=== PATIENT | male | born 1970 | race Caucasian/White ===

== ENCOUNTER 2018-12-01 03:28 | Outpatient (CLI) | payer SELFPAY | END 2018-12-01 03:29 | disposition critical access hospital (66) | LOC: EMS 03:28 | PROVIDERS: ATTEND Surgery | DX: R07.9 Chest pain, unspecified (principal) | CPT/HCPCS: A0425; A0427 ==

== ENCOUNTER 2018-12-01 03:43 | Emergency (ER) | payer SELFPAY ==
--- NOTE | 2018-12-01 03:57 | ED Physician Documentation ---
PD HPI CHEST PAIN - Stated complaint Stated Complaint: CP - History obtained from History obtained from: Patient - History of Present Illness Timing - onset: Enter time (02:00), Today Timing - onset during: Rest Timing - details: Abrupt onset Pain level now: 0 (pain was 8/10, then 5/10 after SLNTG x 2 by medics, and is 0/10 (resolved) on my HPI) Quality: Pain Location: Epigastric Radiation: Other (radiates from epigastrium to midline chest and across lower chest) Improved by: Nitro Worsened by: Other (no inciting nor exacerbating factors) Associated symptoms: No: Shortness of air, Diaphoresis, Nausea, Vomiting, Feeling faint / dizzy, General Weakness, Palpitations Similar symptoms before: Has not had sx before Recently seen: Not recently seen Review of Systems Constitutional: reports: Reviewed and negative Cardiac: reports: Chest pain / pressure. denies: Palpitations, Pedal edema, Calf pain Respiratory: reports: Reviewed and negative GI: reports: Reviewed and negative PD PAST MEDICAL HISTORY - Past Medical History Past Medical History: No - Past Surgical History Past Surgical History: No - Allergies Allergies/Adverse Reactions: Allergies Allergy/AdvReac Type Severity Reaction Status Date / Time Penicillins Allergy Unknown Verified 12/01/18 03:49 - Living Situation Living Arrangement: reports: At home PD ED PE NORMAL - Vitals Vital signs reviewed: Yes - General General: Alert and oriented X 3, No acute distress, Well developed/nourished - HEENT HEENT: Moist mucous membranes - Neck Neck: No JVD - Cardiac Cardiac: RRR, No murmur, No gallop, No rub - Respiratory Respiratory: No respiratory distress, Clear bilaterally - Abdomen Abdomen: Soft, Non tender, Non distended - Derm Derm: Normal color, Warm and dry - Extremities Extremities: No edema Results - Vitals Vitals: Vital Signs - 24 hr 12/01/18 12/01/18 03:49 04:49 Temperature 36.5 C Heart Rate 75 66 Respiratory 16 16 Rate Blood Pressure 130/98 H 110/79 O2 Saturation 98 99 Oxygen O2 Source Room air - EKG (time done) No standard instances Rate: Rate (enter#) (68) Rhythm: NSR [place]: Normal Intervals: Normal NE QRS: Normal Ischemia: Normal ST segments - Labs Labs: Laboratory Tests 12/01/18 12/01/1819 04:05 04:05 04:05 WBC 6.6 RBC 4.36 L Hgb 13.7 L Hct 42.5 MCV 97.5 H MCH 31.4 H MCHC 32.2 RDW 15.5 H Plt Count 162 MPV 10.3 Neut # (Auto) 2.4 Lymph # (Auto) 2.9 [place] # (Auto) 0.7 Eos # (Auto) 0.5 Baso # (Auto) 0.1 Absolute Nucleated RBC 0.00 Nucleated RBC % 0.0 Sodium 139 Potassium 3.8 Chloride 104 Carbon Dioxide 25 Anion Gap 10.0 BUN 12 Creatinine 0.8 Estimated GFR (MDRD) 102 Glucose 116 H Calcium 9.4 Total Bilirubin 0.6 AST 29 ALT 23 Alkaline Phosphatase 43 Troponin I < 0.04 Total Protein 6.5 L Albumin 4.0 Globulin 2.5 Albumin/Globulin Ratio 1.6 Lipase 47 - Rads (name of study) chest xray Radiology: Prelim report reviewed, See rad report PD MEDICAL DECISION MAKING - ED course Complexity details: reviewed results, re-evaluated patient, considered differential, d/w patient ED course: Remained asymptomatic during ED stay Departure - Departure Disposition: 01 Home, Self Care Clinical Impression: Chest pain Condition: Good Health Concerns: chest pain Plan of Treatment: follow up with primary care provider, return if symptoms worsen Care Goals: prevention of symptoms recurrence Assessment: see diagnosis Instructions: ED Chest Pain Atypical Unkn Cause Follow-Up: Ross Snow MD [Primary Care Provider] - (Call today to arrange for next available appointment; further testing might be necessary even if you do not have recurrence of your symptoms) Discharge Date/Time: 12/01/18 04:55
[2018-12-01 04:11] LABS: BASOPHILS # (AUTO) 0.1 10^3/uL (0.0-0.1); BASOPHILS % (AUTO) 0.8 %; EOSINOPHILS # (AUTO) 0.5 10^3/uL (0.0-0.7); EOSINOPHILS % (AUTO) 7.5 %; HGB - HEMOGLOBIN 13.7 g/dL (14.0-18.0); LYMPHOCYTES # (AUTO) 2.9 10^3/uL (1.5-3.5); LYMPHOCYTES % (AUTO) 44.4 %; MEAN CORPUSCULAR HEMOGLOBIN 31.4 pg (27.0-31.0); MEAN CORPUSCULAR HGB CONC 32.2 g/dL (32.0-36.0); MEAN CORPUSCULAR VOLUME 97.5 fL (80.0-94.0); MEAN PLATELET VOLUME 10.3 fL (7.4-11.4); MONOCYTES # (AUTO) 0.7 10^3/uL (0.0-1.0); MONOCYTES % (AUTO) 10.4 %; NEUTROPHILS # (AUTO) 2.4 10^3/uL (1.5-6.6); NEUTROPHILS % (AUTO) 36.6 %; PLT - PLATELET COUNT 162 10^3/uL (130-450); RED BLOOD COUNT 4.36 10^6/uL (4.70-6.10); RED CELL DISTRIBUTION WIDTH 15.5 % (12.0-15.0); WHITE BLOOD COUNT 6.6 x10^3/uL (4.8-10.8)
[2018-12-01 04:23] LABS: ALBUMIN/GLOBULIN RATIO 1.6 (1.0-2.2); BILIRUBIN,TOTAL 0.6 mg/dL (0.2-1.0); CALCIUM 9.4 mg/dL (8.5-10.3); CREATININE 0.8 mg/dL (0.6-1.2); TOTAL PROTEIN 6.5 g/dL (6.7-8.2)
--- NOTE | 2018-12-01 04:38 | XRAY Report ---
Reason: chest pain Procedure Date: 12/01/2018 Accession Number: [id number] / [id number] Procedure: XR - Chest 2 View X-Ray CPT Code: 37503 FULL RESULT: EXAM: CHEST RADIOGRAPHY EXAM DATE: 12/01/2018 04:15 AM. CLINICAL HISTORY: Chest pain. COMPARISON: CXR 12/12/2005 1:54 PM. TECHNIQUE: 2 views. FINDINGS: Lungs/Pleura: No focal opacities evident. No pleural effusion. No pneumothorax. Normal volumes. Mediastinum: Heart and mediastinal contours are unremarkable. Other: None. IMPRESSION: Normal 2-view chest radiography. RADIA
[2018-12-01 04:49] VITALS: BP 110/79
== END 2018-12-01 04:55 | disposition home or self-care (01) ==
LOC: EDUNIT# → ED 03:43
DX: R07.9 Chest pain, unspecified (principal); R10.13 Epigastric pain
CPT/HCPCS: 36415; 71046; 80053; 83690; 84484; 85025; 93005; 99283; 99284

== ENCOUNTER 2020-03-26 15:44 | Outpatient (CLI) | payer MEDICAID | END 2020-03-26 15:45 | disposition critical access hospital (66) | LOC: EMS 15:44 | PROVIDERS: ATTEND Surgery | DX: R07.9 Chest pain, unspecified (principal); R10.13 Epigastric pain | CPT/HCPCS: A0425; A0429 ==

== ENCOUNTER 2020-03-26 16:08 | Emergency (ER) | payer MEDICAID ==
--- NOTE | 2020-03-26 16:18 | ED Physician Documentation ---
PD HPI CHEST PAIN - Stated complaint Stated Complaint: EPIGASTRIC DISCOMFORT - History obtained from History obtained from: Patient, EMS - Additional information Additional information: 49-year-old gentleman, generally healthy but does smoke and drinks alcohol. He developed sudden onset stabbing left lower chest pain that is nonradiating about an hour ago. Not associated with cough or shortness of breath. It is worse if he takes a deep breath. No recent travel. No pedal edema or calf pain. No history of heart or lung problems. Brought in by ambulance, prehospital EKG looks normal. Declined/refused other interventions in route including aspirin, nitroglycerin. Review of Systems Ten Systems: 10 systems reviewed and negative Constitutional: reports: Reviewed and negative Cardiac: reports: Chest pain / pressure. denies: Palpitations, Pedal edema, Calf pain Respiratory: denies: Dyspnea, Cough, Hemoptysis, Wheezing PD PAST MEDICAL HISTORY - Past Medical History GI: Hiatal hernia - Past Surgical History Past Surgical History: No - Present Medications Home Medications: Ambulatory Orders Medication Instructions Recorded Confirmed Omeprazole 20 mg PO DAILY #30 capsule. 03/26/20 - Allergies Allergies/Adverse Reactions: Allergies Allergy/AdvReac Type Severity Reaction Status Date / Time Penicillins Allergy Unknown Verified 03/26/20 16:19 - Social History Does the pt smoke?: Yes Smoking Status: Current every day smoker Does the pt drink ETOH?: Yes Does the pt have substance abuse?: No - Family History Family history: reports: CAD (younger brother) PD ED PE NORMAL - Vitals Vital signs reviewed: Yes - General General: Alert and oriented X 3, Other ([place] with deep breathing bout, otherwise comfortable) - HEENT HEENT: PERRL, EOMI - Neck Neck: Supple, no meningeal sign, No bony TTP - Cardiac Cardiac: RRR, No murmur - Respiratory Respiratory: No respiratory distress, Clear bilaterally - Abdomen Abdomen: Soft, Non tender - Back Back: No CVA TTP, No spinal TTP - Extremities Extremities: No edema, No calf tenderness / cord - Neuro Neuro: Alert and oriented X 3, Normal speech Results - Vitals Vitals: Vital Signs - 24 hr 03/26/20 03/26/20 03/26/20 16:10 17:09 17:22 Temperature 36.9 C Heart Rate 74 61 Respiratory 18 16 Rate Blood Pressure 156/111 H 145/109 H 141/98 H O2 Saturation 98 100 03/26/20 17:59 Temperature 36.7 C Heart Rate 70 Respiratory 20 Rate Blood Pressure 144/98 H O2 Saturation 99 Oxygen O2 Source Room air - Labs Labs: Laboratory Tests 03/26/20 03/26/20 03/26/20 17:00 17:00 17:00 WBC 5.3 RBC 4.47 L Hgb 14.6 Hct 42.9 MCV 96.0 H MCH 32.7 H MCHC 34.0 RDW 15.5 H Plt Count 141 MPV 10.3 Neut # (Auto) 2.5 Lymph # (Auto) 1.9 [place] # (Auto) 0.6 Eos # (Auto) 0.3 Baso # (Auto) 0.0 Absolute Nucleated RBC 0.00 Nucleated RBC % 0.0 D-Dimer < 200.0 L Sodium 138 Potassium 4.1 Chloride 104 Carbon Dioxide 25 Anion Gap 9.0 BUN 7 Creatinine 0.6 Estimated GFR (MDRD) 142 Glucose 102 H Calcium 9.6 Total Bilirubin 0.6 AST 91 H ALT 49 Alkaline Phosphatase 48 Troponin I High Sens Total Protein 7.1 Albumin 4.3 Globulin 2.8 Albumin/Globulin Ratio 1.5 Lipase 81 H 03/26/20 17:00 WBC RBC Hgb Hct MCV MCH MCHC RDW Plt Count MPV Neut # (Auto) Lymph # (Auto) [place] # (Auto) Eos # (Auto) Baso # (Auto) Absolute Nucleated RBC Nucleated RBC % D-Dimer Sodium Potassium Chloride Carbon Dioxide Anion Gap BUN Creatinine Estimated GFR (MDRD) Glucose Calcium Total Bilirubin AST ALT Alkaline Phosphatase Troponin I High Sens 2.6 Total Protein Albumin Globulin Albumin/Globulin Ratio Lipase PD MEDICAL DECISION MAKING - ED course ED course: Heart score is 2 (smoking, fhx), pleuritic nature was concerning for PE but D- dimer negative. Departure - Departure Disposition: 01 Home, Self Care Clinical Impression: Chest pain Qualifiers: Chest pain type: unspecified Qualified Code(s): R07.9 - Chest pain, unspecified Condition: Good Record reviewed to determine appropriate education?: Yes Instructions: ED Chest Pain NonCardiac Prescriptions: Omeprazole 20 mg PO DAILY #30 capsule. Comments: Call your doctor to arrange a follow-up appointment, make the next available appointment. In the interim, return anytime if worse or if new symptoms develop.
--- NOTE | 2020-03-26 16:46 | XRAY Report ---
PROCEDURE: Chest 2 View X-Ray INDICATIONS: chest pain TECHNIQUE: 2 view(s) of the chest. COMPARISON: None. FINDINGS: Surgical changes and devices: None. Lungs and pleura: No pleural effusions or pneumothorax. Lungs are clear. Mediastinum: Mediastinal contours are normal. Heart size is normal. Bones and chest wall: No suspicious bony abnormalities. Soft tissues appear unremarkable. IMPRESSION: No acute cardia pulmonary pathology. Reviewed by: Damián Franklin MD on 03/26/2020 4:45 PM PDT Approved by: Damián Franklin MD on 03/26/2020 4:45 PM PDT Station ID: [id number]
[2020-03-26 17:12] LABS: BASOPHILS % (AUTO) 0.8 %; EOSINOPHILS # (AUTO) 0.3 10^3/uL (0.0-0.7); HGB - HEMOGLOBIN 14.6 g/dL (14.0-18.0); LYMPHOCYTES # (AUTO) 1.9 10^3/uL (1.5-3.5); LYMPHOCYTES % (AUTO) 35.3 %; MEAN CORPUSCULAR HEMOGLOBIN 32.7 pg (27.0-31.0); MEAN PLATELET VOLUME 10.3 fL (7.4-11.4); MONOCYTES # (AUTO) 0.6 10^3/uL (0.0-1.0); MONOCYTES % (AUTO) 10.4 %; NEUTROPHILS # (AUTO) 2.5 10^3/uL (1.5-6.6); NEUTROPHILS % (AUTO) 47.1 %; PLT - PLATELET COUNT 141 10^3/uL (130-450); RED BLOOD COUNT 4.47 10^6/uL (4.70-6.10); RED CELL DISTRIBUTION WIDTH 15.5 % (12.0-15.0); WHITE BLOOD COUNT 5.3 x10^3/uL (4.8-10.8)
[2020-03-26 17:24] LABS: ALBUMIN 4.3 g/dL (3.2-5.5); ALBUMIN/GLOBULIN RATIO 1.5 (1.0-2.2); BILIRUBIN,TOTAL 0.6 mg/dL (0.2-1.0); CALCIUM 9.6 mg/dL (8.5-10.3); CREATININE 0.6 mg/dL (0.6-1.2); TOTAL PROTEIN 7.1 g/dL (6.7-8.2)
[2020-03-26] MEDS ORDERED: LIDOCAINE VISCOUS 2% 15 ML UDC MM STA (17:35)
[2020-03-26] MEDS ORDERED: MAG HYDROX/AL HYDROX/SIMETH 30 ML UDC PO STA (17:35)
[2020-03-26 17:59] VITALS: BP 144/98
== END 2020-03-26 18:57 | disposition home or self-care (01) ==
LOC: EDUNIT# → ED 16:08
DX: R07.9 Chest pain, unspecified (principal); F17.200 Nicotine dependence, unspecified, uncomplicated
CPT/HCPCS: 36415; 71046; 80053; 83690; 84484; 85025; 85379; 93005; 99284; A9270

== ENCOUNTER 2021-02-20 07:36 | Outpatient (CLI) | payer MEDICAID | END 2021-02-20 07:37 | disposition critical access hospital (66) | LOC: EMS 07:36 | DX: N50.82 Scrotal pain (principal); R10.9 Unspecified abdominal pain; R11.0 Nausea | CPT/HCPCS: A0425; A0427; A0999 ==

== ENCOUNTER 2021-02-20 07:53 | Emergency (ER) | payer MEDICAID ==
[2021-02-20] MEDS ORDERED: KETOROLAC 30 MG/ML VIAL IVP STA (07:56)
[2021-02-20 08:14] LABS: BASOPHILS % (AUTO) 0.6 %; EOSINOPHILS # (AUTO) 0.3 10^3/uL (0.0-0.7); EOSINOPHILS % (AUTO) 4.2 %; HCT - HEMATOCRIT 38.2 % (42.0-52.0); HGB - HEMOGLOBIN 13.3 g/dL (14.0-18.0); LYMPHOCYTES # (AUTO) 1.9 10^3/uL (1.5-3.5); LYMPHOCYTES % (AUTO) 29.9 %; MEAN CORPUSCULAR HEMOGLOBIN 32.8 pg (27.0-31.0); MEAN CORPUSCULAR HGB CONC 34.8 g/dL (32.0-36.0); MEAN CORPUSCULAR VOLUME 94.1 fL (80.0-94.0); MEAN PLATELET VOLUME 10.7 fL (7.4-11.4); MONOCYTES # (AUTO) 0.6 10^3/uL (0.0-1.0); MONOCYTES % (AUTO) 9.9 %; NEUTROPHILS # (AUTO) 3.5 10^3/uL (1.5-6.6); NEUTROPHILS % (AUTO) 55.2 %; PLT - PLATELET COUNT 146 10^3/uL (130-450); RED BLOOD COUNT 4.06 10^6/uL (4.70-6.10); RED CELL DISTRIBUTION WIDTH 15.2 % (12.0-15.0); WHITE BLOOD COUNT 6.3 x10^3/uL (4.8-10.8)
[2021-02-20] MEDS ORDERED: SODIUM CHLORIDE 0.9% 1,000 ML IV STA (08:20)
[2021-02-20 08:26] LABS: ALBUMIN 3.9 g/dL (3.2-5.5); ALBUMIN/GLOBULIN RATIO 1.3 (1.0-2.2); BILIRUBIN,TOTAL 0.8 mg/dL (0.2-1.0); CALCIUM 9.5 mg/dL (8.5-10.3); CREATININE 0.8 mg/dL (0.6-1.2); POTASSIUM 3.9 mmol/L (3.5-5.0); TOTAL PROTEIN 6.8 g/dL (6.7-8.2)
--- NOTE | 2021-02-20 08:36 | CT Report ---
PROCEDURE: Abdomen/Pelvis WO INDICATIONS: right flank pain TECHNIQUE: Noncontrast 5 mm thick sections acquired from the diaphragms to the symphysis. 5 mm coronal and sagi ttal reformats were then performed. For radiation dose reduction, the following was used: automated exposure control, adjustment of mA and/or kV according to patient size. COMPARISON: None. FINDINGS: ABDOMEN: Lung bases: Normal Heart:Normal. Liver: Normal. Gallbladder: Normal. Bile ducts: Normal. Pancreas: Normal. Spleen: Normal. Adrenals: Normal. Kidneys and ureters: 2 mm mildly obstructive distal right ureteral calculus. No left-sided urolithias is. There is mild right hydroureteronephrosis. Minimal right perinephric stranding. Stomach and duodenum: Normal. Bowel: The appendix appears normal (image 101/3) No evidence of bowel obstruction. There is long segm ent mild mural thickening involving the colon including the right, transverse, and descending colon h owever limited evaluation given decompressed status. Other: No free fluid or air. Abdominal nodes: Normal. Aorta: Normal in sizel. IVC: Normal. Ventral wall: Normal. PELVIS: Bladder: Normal. Pelvic nodes: Normal. Inguinal regions: No hernia. Bones: No vertebral body compression fracture. No suspicious bone lesion. Diffuse spondylosis and fac et arthropathy IMPRESSION: Mildly obstructive 2 mm mid right ureteral calculus. No left-sided urolithiasis identified. Normal appendix Mild diffuse colonic mural thickening suggestive of low-grade pancolitis of infectious or inflammator y etiology. Please correlate clinically and with laboratory data. Technically this finding age-indete rminate and could be chronic. Reviewed by: Ron Mcmanus MD on 02/20/2021 8:35 AM PDT Approved by: Ron Mcmanus MD on 02/20/2021 8:35 AM PDT Station ID: [id number]
--- NOTE | 2021-02-20 08:44 | ED Physician Documentation ---
PD HPI ABD PAIN - Stated complaint Stated Complaint: AB PX - Chief complaint Chief Complaint: Abd Pain - History obtained from History obtained from: Patient - History of Present Illness Timing - onset: Enter time (0500), Today Timing - duration: Hours Timing - details: Abrupt onset, Still present Quality: Sharp, Pain Location: RUQ Radiation: Right flank Improved by: Other (nothing) Worsened by: Other (nothing) Associated symptoms: Nausea. No: Vomiting Similar symptoms before: Diagnosis (kidney stone) Recently seen: Other (had immunization last wk) - Additional information Additional information: 50-year-old male with a prior history of kidney stones has developed acute right-sided abdominal pain at 5 AM without modifying factors. He states the pain radiated from his right flank down into his scrotum currently his pain is mostly in the lower pelvis area. He has had some nausea. He does indicate that he is otherwise had some issue with some intermittent diarrhea for the past 6 months. He denies any blood in it or any significant abdominal pain associated with this. Review of Systems Constitutional: denies: Fever Eyes: denies: Decreased vision Ears: denies: Loss of hearing, Ear pain Nose: denies: Congestion Throat: denies: Sore throat Cardiac: denies: Chest pain / pressure, Palpitations Respiratory: denies: Dyspnea, Cough GI: reports: Abdominal Pain, Nausea. denies: Constipation, Diarrhea : denies: Dysuria, Frequency Skin: denies: Rash, Lesions Musculoskeletal: reports: Back pain. denies: Neck pain, Extremity pain PD PAST MEDICAL HISTORY - Past Medical History GI: Hiatal hernia - Past Surgical History Past Surgical History: No - Present Medications Home Medications: Ambulatory Orders Medication Instructions Recorded Confirmed Omeprazole 20 mg PO DAILY #30 capsule. 03/26/20 HYDROcod/ACETAM 5/325 [[place] 5/325] 1 - 2 tablet PO Q6H PRN #14 tablet 02/20/21 - Allergies Allergies/Adverse Reactions: Allergies Allergy/AdvReac Type Severity Reaction Status Date / Time Penicillins Allergy Unknown Verified 02/20/21 08:00 - Social History Does the pt smoke?: Yes Smoking Status: Current every day smoker Does the pt drink ETOH?: Yes Does the pt have substance abuse?: No - Immunizations Immunizations are current?: No PD ED PE NORMAL - Vitals Vital signs reviewed: Yes (hypertensive mild ) - General General: Alert and oriented X 3, Well developed/nourished, Other (uncomfortable masked male. ) - HEENT HEENT: Atraumatic, PERRL, EOMI - Cardiac Cardiac: RRR, No murmur - Respiratory Respiratory: No respiratory distress, Clear bilaterally - Abdomen Abdomen: Normal bowel sounds, Soft, Non tender, Non distended, No organomegaly - Back Back: No CVA TTP, No spinal TTP - Derm Derm: Normal color, Warm and dry, No rash - Extremities Extremities: No deformity, No edema - Neuro Neuro: Alert and oriented X 3, enamel pulverizer 2-12 intact, No motor deficit, No sensory deficit, Normal speech Eye Opening: Spontaneous Motor: Obeys Commands Verbal: Oriented GCS Score: 15 - Psych Psych: Normal mood, Normal affect Results - Vitals Vitals: Vital Signs - 24 hr 02/20/21 02/20/21 02/20/21 07:58 09:17 11:00 Temperature 36.3 C L 36.9 C Heart Rate 55 L 56 L 59 L Respiratory 16 16 Rate Blood Pressure 123/83 H 121/85 H O2 Saturation 99 99 97 Oxygen O2 Source Room air - Labs Labs: Laboratory Tests 02/20/21 02/20/21 02/20/21 08:08 08:08 10:30 WBC 6.3 RBC 4.06 L Hgb 13.3 L Hct 38.2 L MCV 94.1 H MCH 32.8 H MCHC 34.8 RDW 15.2 H Plt Count 146 MPV 10.7 Neut # (Auto) 3.5 Lymph # (Auto) 1.9 [place] # (Auto) 0.6 Eos # (Auto) 0.3 Baso # (Auto) 0.0 Absolute Nucleated RBC 0.00 Nucleated RBC % 0.0 Sodium 141 Potassium 3.9 Chloride 103 Carbon Dioxide 23 Anion Gap 15.0 H BUN 13 Creatinine 0.8 Estimated GFR (MDRD) 102 Glucose 136 H Calcium 9.5 Total Bilirubin 0.8 AST 55 H ALT 29 Alkaline Phosphatase 36 L Total Protein 6.8 Albumin 3.9 Globulin 2.9 Albumin/Globulin Ratio 1.3 Lipase 34 Urine Color YELLOW Urine Clarity CLEAR Urine pH 6.5 Ur Specific [place] 1.020 Urine Protein NEGATIVE Urine Glucose (UA) NEGATIVE Urine Ketones NEGATIVE Urine Occult Blood LARGE H Urine Nitrite NEGATIVE Urine Bilirubin NEGATIVE Urine Urobilinogen 0.2 (NORMAL) Ur Leukocyte Esterase NEGATIVE Urine RBC TNTC H Urine WBC 0-3 Ur Squamous Epith Cells FEW Squamous Urine Crystals 0-2 Calcium Oxalate Urine Bacteria Rare Urine Mucus Few Strands Ur Microscopic Review INDICATED Urine Culture Comments NOT INDICATED - Rads (name of study) CT ab pel Radiology: Prelim report reviewed (Impression: Mildly obstructive 2 mm right ureteral calculus. No left-sided ureteral lithiasis identified. Normal appendix. Mild diffuse colonic mural thickening suggestive of low-grade pancolitis of infectious or inflammatory etiology. Please correlate clinically and with laboratory data. ), Final report received ( Technically this finding age-indeterminate and could be chronic), EMP read indepedently, See rad report Procedures - Bedside sono Bedside sono by EMP: With use of bedside ultrasound the right kidney is imaged it is sonographically nontender there is evidence of mild hydronephrosis. PD MEDICAL DECISION MAKING - ED course Complexity details: reviewed old records, reviewed results, re-evaluated pat ient, considered differential, d/w patient ED course: 50-year-old male with a prior history of kidney stone has presented with symptoms consistent with a kidney stone again today. He has symptoms on the right side he has hydronephrosis with bedside ultrasound and CT scan of the abdomen pelvis reveals a 2 mm stone in the distal ureter with mild obstruction. The patient is administered Toradol 30 mg intravenously and a liter of saline with marked improvement in his symptoms. Departure - Departure Disposition: 01 Home, Self Care Clinical Impression: Ureterolithiasis Condition: Stable Instructions: ED Stone Renal W Colic Follow-Up: Your, doctor [Other] Prescriptions: HYDROcod/ACETAM 5/325 [[place] 5/325] 1 - 2 tablet PO Q6H PRN #14 tablet PRN Reason: Pain Discharge Date/Time: 02/20/21 11:25
[2021-02-20 10:41] LABS: BILIRUBIN,URINE NEGATIVE (NEGATIVE); GLUCOSE, URINE (UA) NEGATIVE (NEGATIVE); KETONES,URINE (UA) NEGATIVE (NEGATIVE); LEUKOCYTE ESTERASE, URINE NEGATIVE (NEGATIVE); NITRITE,URINE NEGATIVE (NEGATIVE); OCCULT BLOOD,URINE LARGE (NEGATIVE); PH,URINE 6.5 PH (5.0-7.5); PROTEIN,URINE NEGATIVE (NEGATIVE); UROBILINOGEN,URINE 0.2 (NORMAL) E.U./dL (NORMAL)
[2021-02-20 10:53] LABS: CLARITY,URINE CLEAR (CLEAR)
[2021-02-20 10:54] LABS: BACTERIA,URINE Rare /HPF (None Seen); MUCUS,URINE Few Strands; RBC,URINE TNTC /HPF (0-5); SQUAMOUS EPITHELIAL CELL,UR FEW Squamous (<= Few); WBC,URINE 0-3 /HPF (0-3)
[2021-02-20 10:55] LABS: CRYSTALS,URINE 0-2 Calcium Oxalate /LPF
[2021-02-20 11:15] VITALS: BP 121/85
== END 2021-02-20 11:25 | disposition home or self-care (01) ==
LOC: EDUNIT# → ED 07:53
DX: N13.2 Hydronephrosis with renal and ureteral calculous obstruction (principal); F17.200 Nicotine dependence, unspecified, uncomplicated
CPT/HCPCS: 36415; 80053; 81001; 81003; 83690; 85025; 87086; 96361; 96374; 99284

== ENCOUNTER 2022-06-16 07:58 | Emergency (ER) | payer MEDICAID ==
--- NOTE | 2022-06-16 09:02 | XRAY Report ---
PROCEDURE: Ribs w/PA Chest LT INDICATIONS: pain, shortness of air TECHNIQUE: 2 views of the left ribs were acquired, along with a single view chest. COMPARISON: 03/26/2020 FINDINGS: Surgical changes and devices: None. Bones and chest wall: No fractures or dislocations. No suspicious bony lesions. Overlying soft tis sues appear unremarkable. Lungs and pleura: No pleural effusions or pneumothorax. Lungs appear clear. Mediastinum: Mediastinal contours appear normal. Heart size is normal. IMPRESSION: No acute process. No acute fracture. No osseous lesion. If symptoms and/or clinical suspicion for pat hology continue, further assessment with repeat plain films, or advanced imaging (e.g., CT, MRI, or b one scan) is recommended for further assessment. Reviewed by: Jessica Valencia MD on 06/16/2022 9:01 AM PST Approved by: Jessica Valencia MD on 06/16/2022 9:01 AM PST Station ID: [id number]
[2022-06-16 12:05] VITALS: BP 136/85
[2022-06-16] MEDS ORDERED: oxyCODONE 5 MG TABLET PO STA (12:16)
[2022-06-16] MEDS ORDERED: LIDOCAINE PATCH 5% TOP STA (12:16)
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
== END 2022-06-16 12:26 | disposition home or self-care (01) ==
LOC: ED 07:58
DX: R07.89 Other chest pain (principal); F17.200 Nicotine dependence, unspecified, uncomplicated
CPT/HCPCS: 71101; 99283; 99284; A9270

== ENCOUNTER 2023-10-25 11:27 | Emergency (ER) | payer SELFPAY ==
[2023-10-25 12:20] VITALS: O2SAT 98
--- NOTE | 2023-10-25 12:28 | ED Physician Documentation ---
PD HPI HEAD INJURY - Stated complaint Stated Complaint: HEAD INJURY - Chief complaint Chief Complaint: Trauma Hd/Nk - Additional information Additional information: 53-year-old male presents emergency department for concerns of head injury after experiencing a ground-level fall on Tuesday. Patient says that he tripped and fell over a box on the ground he fell hitting his head on the wall and said that there was a significant dent in the drywall after falling. Since then he said that he has been feeling increasingly more weak, nauseous, woozy off or head pain or neck pain. He denies any neurological deficits no loss of consciousness denies any use of blood thinners. PD PAST MEDICAL HISTORY - Past Medical History Past Medical History: Yes Cardiovascular: Hypertension Respiratory: None Neuro: None Endocrine/Autoimmune: None GI: Hiatal hernia - Past Surgical History Past Surgical History: No - Present Medications Home Medications: Ambulatory Orders Medication Instructions Recorded Confirmed Acetaminophen [Tylenol] 650 mg PO Q6H PRN 10/21/22 10/21/22 Butalb/Acetam/Caff 50/325/40 1 each PO Q6H PRN #5 tablet 10/21/22 [Fioricet] Cetirizine [ZyrTEC] 10 mg PO DAILY 10/21/22 10/21/22 HYDROcod/ACETAM 5/325 [[place] 5/325] 1 ea PO Q6H PRN #10 tablet 10/21/22 Naproxen Sodium [Aleve] 220 mg PO DAILY PRN 10/21/22 10/21/22 Ondansetron Odt [Zofran] 4 mg TL Q6H PRN #10 tablet 10/21/22 dexAMETHasone [Decadron] 4 mg PO DAILY #5 tablet 10/21/22 - Allergies Allergies/Adverse Reactions: Allergies Allergy/AdvReac Type Severity Reaction Status Date / Time Penicillins Allergy Unknown Verified 10/25/23 12:18 pseudoephedrine AdvReac Unknown Verified 10/25/23 12:18 - Social History Does the pt smoke?: Yes Smoking Status: Current every day smoker Does the pt drink ETOH?: Yes Does the pt have substance abuse?: No - Immunizations Immunizations are current?: No PD ED PE NORMAL - Vitals Vital signs reviewed: Yes - General General: Alert and oriented X 3, No acute distress, Well developed/nourished - HEENT HEENT: PERRL, Moist mucous membranes - Neck Neck: No JVD. 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, No motor deficit, No sensory deficit, Normal speech Eye Opening: Spontaneous Motor: Obeys Commands Verbal: Oriented GCS Score: 15 - Psych Psych: Normal mood Results - Vitals Vitals: Vital Signs - 24 hr 10/25/23 10/25/23 12:11 16:56 Temperature 36.4 C L 36.2 C L Heart Rate 87 86 Respiratory 15 16 Rate Blood Pressure 117/85 H 145/85 H O2 Saturation 98 98 Oxygen O2 Source Room air - Labs Labs: Laboratory Tests 10/25/23 10/25/23 15:11 15:11 WBC 5.7 RBC 4.43 L Hgb 14.0 Hct 42.7 MCV 96.4 H MCH 31.6 H MCHC 32.8 RDW 16.7 H Plt Count 151 MPV 10.0 Neut # (Auto) 3.6 Lymph # (Auto) 1.5 [place] # (Auto) 0.4 Eos # (Auto) 0.1 Baso # (Auto) 0.0 Absolute Nucleated RBC 0.00 Nucleated RBC % 0.0 Sodium 138 Potassium 4.2 Chloride 103 Carbon Dioxide 27 Anion Gap 8.0 BUN 12 Creatinine 0.6 Estimated GFR (MDRD) 140 Glucose 115 H Calcium 9.9 Magnesium 1.6 L Total Bilirubin 0.4 AST 26 ALT 14 Alkaline Phosphatase 42 Total Protein 7.3 Albumin 4.5 Globulin 2.8 Albumin/Globulin Ratio 1.6 Lipase 18 - Rads (name of study) Ribs x-ray Relevant Findings:: Final report received, EMP independent interpretation of test, Other (No acute rib fractures or other osseous abnormalities) Head CT without Relevant Findings:: Final report received, EMP independent interpretation of test, Other (No acute intracranial abnormalities or findings no cranial fractures) Cervical spine without Relevant Findings:: Final report received, EMP independent interpretation of test, Other (Mildly displaced fracture at the anterior lateral aspect of the right C2 vertebral body fracture line extends through the right gates transversarium) Angio neck CT with Relevant Findings:: Final report received, EMP independent interpretation of test, Other (Tiny linear filling defect involving the right vertebral artery adjacent to the right C2 fracture possible small focal dissection) PD Medical Decision Making - ED course ED course: 53-year-old male presents emergency department with head injury that occurred on Tuesday, October 20. Patient reports overall he has been feeling worse instead of better. Differentials include but not limited to intracranial hemorrhage, C-spine fracture, dissection. Rib x-ray was complete for possible rib fracture of the left chest which was found to be unremarkable. Head CT without was complete and did not reveal any intracranial hemorrhages or abnormalities. Cervical neck CT without con was also complete for further evaluation unfortunately there was found to be a minimally displaced C2 fracture of the right vertebral body. Fracture lines do extend through the right gates transversarium. From there we went ahead and added on a CT neck angio which did reveal a tiny linear filling defect involving the right vertebral artery adjacent to the right C2 fracture. This is most likely due to a small focal dissection. Labs were complete no leukocytosis and no anemia no other electrolyte abnormalities or findings. We reach out to [facility] who connected me with Dr. layton ER emergency physician who was kind enough to accept patient ER to ER. Patient will be flown to [facility] emergency department for further evaluation of his C2 fracture with possible dissection. Patient remains completely neurologically intact he is reminded multiple times to sit down at rest. C-collar has been on patient's entire ER visit. Patient does report that he feels like he is going into nicotine withdrawal so nicotine patch is ordered. Patient is agreeable to be transferred to [facility] via airlift. Departure - Departure Disposition: 02 Transfer Acute Care Hosp Clinical Impression: Vertebral artery dissection, Ground-level fall C2 cervical fracture Qualifiers: Encounter type: initial encounter Fracture type: closed Fracture morphology: unspecified fracture morphology Fracture alignment: displaced Qualified Code(s): S12.100A - Unspecified displaced fracture of second cervical vertebra, initial encounter for closed fracture Forms: PCP List
[2023-10-25] MEDS: IBUPROFEN 600 MG TABLET PO STA (12:41)
[2023-10-25] MEDS: ACETAMINOPHEN 325 MG TABLET PO STA (12:41)
[2023-10-25] MEDS: ONDANSETRON ODT 4 MG TABLET TL STA (12:41)
--- NOTE | 2023-10-25 14:26 | CT Report ---
PROCEDURE: Head WO INDICATIONS: fall, hit head on wall TECHNIQUE: Noncontrast 4.5 mm thick angled axial sections acquired from the foramen magnum to the vertex. For r adiation dose reduction, the following was used: automated exposure control, adjustment of mA and/or kV according to patient size. COMPARISON: 10/21/2022. Correlation is also made with the accompanying imaging. FINDINGS: Image quality: Excellent. CSF spaces: Basal cisterns are patent. No extra-axial fluid collections. Ventricles are normal in size and shape. Brain: No midline shift. No intracranial masses or hemorrhage. Ladd-white matter interface is norm al. Skull and face: Calvarium and visualized facial bones are intact, without suspicious lesions. Sinuses: Visualized sinuses and mastoids are clear. IMPRESSION: Noncontrast head CT within normal limits, stable from prior. Reviewed by: Scott Cedeño MD on 10/25/2023 1:25 PM JAKE Approved by: Scott Cedeño MD on 10/25/2023 1:25 PM JAKE Station ID: [id number]
--- NOTE | 2023-10-25 14:32 | CT Report ---
PROCEDURE: Cervical Spine WO INDICATIONS: fall, hit head on wall TECHNIQUE: Noncontrast 3 mm thick sections acquired from the skull base to the T4 level. Sagittal and coronal r eformats were then constructed. For radiation dose reduction, the following was used: automated exp osure control, adjustment of mA and/or kV according to patient size. COMPARISON: Correlation is made with the accompanying imaging. FINDINGS: Image quality: Excellent. Bones: There is a mildly displaced fracture seen involving the anterolateral body of the C2 level on the right, which continues into the lateral elements. There is involvement of the right foramen trans versarium. The fracture lines can be seen on series 10 image 29 and on series 8 image 21 and on serie s 12 image 36. No additional fractures can be seen. Focal degenerative change can be seen involving the C1-C2 inte rface anteriorly. Mild to moderate disc space narrowing can be seen at the C6-C7 level, with associat ed endplate irregularity and mild posteriorly directed endplate osteophytes. Soft tissues: Prevertebral soft tissues are normal in thickness. No paravertebral hematomas. No ap ical pneumothoraces. IMPRESSION: There is a mildly displaced fracture seen involving the anterolateral aspect of the right C2 vertebra l body. The fracture lines extend through the right foramen transversarium. As a conservative measure, please consider a follow-up neck CT angiogram to evaluate for potential in volvement of the right vertebral artery at this site. Focal C6-C7 degenerative change is seen. Reviewed by: Scott Cedeño MD on 10/25/2023 1:30 PM JAKE Approved by: Scott Cedeño MD on 10/25/2023 1:30 PM OHPETER Station ID: [id number]
[2023-10-25] MEDS: oxyCODONE 5 MG TABLET PO STA (14:50)
[2023-10-25 15:17] LABS: BASOPHILS % (AUTO) 0.5 %; EOSINOPHILS # (AUTO) 0.1 10^3/uL (0.0-0.7); EOSINOPHILS % (AUTO) 2.5 %; HCT - HEMATOCRIT 42.7 % (42.0-52.0); LYMPHOCYTES # (AUTO) 1.5 10^3/uL (1.5-3.5); MEAN CORPUSCULAR HEMOGLOBIN 31.6 pg (27.0-31.0); MEAN CORPUSCULAR HGB CONC 32.8 g/dL (32.0-36.0); MEAN CORPUSCULAR VOLUME 96.4 fL (80.0-94.0); MONOCYTES # (AUTO) 0.4 10^3/uL (0.0-1.0); MONOCYTES % (AUTO) 7.4 %; NEUTROPHILS # (AUTO) 3.6 10^3/uL (1.5-6.6); NEUTROPHILS % (AUTO) 63.4 %; PLT - PLATELET COUNT 151 10^3/uL (130-450); RED BLOOD COUNT 4.43 10^6/uL (4.70-6.10); RED CELL DISTRIBUTION WIDTH 16.7 % (12.0-15.0); WHITE BLOOD COUNT 5.7 x10^3/uL (4.8-10.8)
[2023-10-25 15:31] LABS: ALBUMIN 4.5 g/dL (3.2-5.5); ALBUMIN/GLOBULIN RATIO 1.6 (1.0-2.2); BILIRUBIN,TOTAL 0.4 mg/dL (0.2-1.0); CALCIUM 9.9 mg/dL (8.5-10.3); CREATININE 0.6 mg/dL (0.6-1.3); MAGNESIUM 1.6 mg/dL (1.7-2.3); POTASSIUM 4.2 mmol/L (3.5-4.5); TOTAL PROTEIN 7.3 g/dL (6.4-8.9)
[2023-10-25] MEDS ORDERED: iohexoL-300 100 ML VIAL ONE (15:42)
--- NOTE | 2023-10-25 16:02 | XRAY Report ---
PROCEDURE: Ribs 2V LT INDICATIONS: left chest pain TECHNIQUE: 3 views of the ribs were acquired. COMPARISON: 06/16/2022. FINDINGS: Bones and chest wall: No fractures or dislocations. No suspicious bony lesions. Overlying soft tis sues appear unremarkable. Lungs and pleura: The visualized lung appears clear. No pleural effusions or pneumothorax are visib le. IMPRESSION: No displaced fracture or pneumothorax. Reviewed by: Shan Ramos MD on 10/25/2023 4:00 PM PDT Approved by: Shan Ramos MD on 10/25/2023 4:00 PM PDT Station ID: [id number]
[2023-10-25] MEDS: iohexoL-300 100 ML VIAL IVP ONE (17:00)
--- NOTE | 2023-10-25 17:10 | CT Report ---
PROCEDURE: Angio Neck INDICATIONS: known C2 fracture CONTRAST: Omni 300 80ml TECHNIQUE: After the administration of intravenous contrast, 1.5 mm axial sections acquired from the aortic arch to the [place]. Coronal 3-D maximum intensity projection (MIP) and/or volume rendering ref ormats were then performed. For radiation dose reduction, the following was used: automated exposur e control, adjustment of mA and/or kV according to patient size. COMPARISON: Same day CT cervical spine. FINDINGS: Image quality: Excellent. Carotid system: The great vessels demonstrate a conventional anatomy as they arise from the aortic a rch. The origins of the common carotid arteries appear patent. The common carotid arteries demonstr ate normal calibers and courses. The bifurcation regions appear normal bilaterally. The internal ca rotid arteries demonstrate normal caliber and course. Posterior circulation: The origins of the vertebral arteries appear patent. Adjacent to the right C2 fracture, there is a tiny linear filling defect involving the vertebral artery (4/180). Findings may represent a small focal dissection. They join to form a normal appearing basilar artery. Soft tissues: Visualized neck soft tissues demonstrate no suspicious abnormalities. The thyroid is normal in size and there are no incidental findings. Bones: Redemonstration of multicystic fracture involving the anterolateral aspect of the right C2 jamila tebral body.. Visualized cervical spine appears normally aligned. IMPRESSION: Tiny linear filling defect involving the right vertebral artery adjacent to the right C2 fracture, ma y represent a small focal dissection. The remainder the artery is patent and normal in caliber. The estimate of stenosis included in the report of the imaging study was calculated using the NASCET method Reviewed by: Shan Ramos MD on 10/25/2023 5:09 PM PDT Approved by: Shan Ramos MD on 10/25/2023 5:09 PM PDT Station ID: [id number]
[2023-10-25] MEDS: NICOTINE 21 MG PATCH TOP STA (17:48)
[2023-10-25 17:56] VITALS: BP 150/103
== END 2023-10-25 18:30 | disposition short-term general hospital (02) ==
LOC: ED 11:27
DX: S12.100A Unspecified displaced fracture of second cervical vertebra, initial encounter for closed fracture (principal); I77.74 Dissection of vertebral artery; W01.198A Fall on same level from slipping, tripping and stumbling with subsequent striking against other object, initial encounter; F17.203 Nicotine dependence unspecified, with withdrawal
CPT/HCPCS: 36415; 70450; 70498; 71100; 72125; 80053; 83690; 83735; 85025; 99285; A9270; Q0162; Q9967